=== PATIENT | male | born 1965 | race Caucasian/White ===

== ENCOUNTER 2022-07-20 12:07 | Outpatient (CLI) | payer BC, SELFPAY ==
[2022-07-20 13:07] LABS: Albumin* 4.5 g/dL (3.3-5.0)
[2022-07-20 13:08] LABS: Chloride* 103 mmol/L (96-114); Potassium* 4.8 mmol/L (3.6-5.1); Sodium* 137 mmol/L (135-149)
[2022-07-20 13:10] LABS: Alkaline Phosphatase* 51 U/L (40-150); Aspartate Amino Transferase* 30 U/L (12-35); Bilirubin Total* 0.7 mg/dL (0.1-1.5); Blood Urea Nitrogen* 20 mg/dL (7-30); Carbon Dioxide* 26 mmol/L (20-32); Cholesterol* 141 mg/dL (90-199); Creatinine* 0.8 mg/dL (0.5-1.5); Estimated Glomerular Filt Rate 103 ml/min
[2022-07-20 13:11] LABS: Alanine Aminotransferase* 32 U/L (4-50); Calcium* 9.5 mg/dL (8.4-10.6); Glucose* 100 mg/dL (60-115); Triglycerides* 86 mg/dL (40-149)
[2022-07-20 13:12] LABS: HDL Cholesterol* 43 mg/dL (>=40); LDL Cholesterol Calculated 81 mg/dL (<100)
[2022-07-20 13:37] LABS: PSA Screen* 1.19 ng/mL (0.10-4.00)
[2022-07-27 15:28] LABS: Sex Hormone Binding Globulin 43 nmol/L (19-76); Testosterone, Free LC-MS/MS 211.8 pg/mL (47.0-244.0); Testosterone, LC-MS/MS 1116 ng/dL (300-890)
== END 2022-07-20 12:08 | disposition home or self-care (01) ==
PROVIDERS: PCP Family Medicine; Visit Provider Family Medicine
DX: Z00.00 Encounter for general adult medical examination without abnormal findings (principal); R79.89 Other specified abnormal findings of blood chemistry; E78.5 Hyperlipidemia, unspecified; I10 Essential (primary) hypertension; R68.82 Decreased libido
CPT/HCPCS: 80053; 80061; 84153; 84270; 84402; 84403

== ENCOUNTER 2022-09-21 12:41 | Outpatient (CLI) | payer BC, SELFPAY | END 2022-09-21 12:42 | disposition home or self-care (01) | LOC: OP CLINIC 12:42 | PROVIDERS: PCP Family Medicine; Visit Provider Internal Medicine | DX: Z12.11 Encounter for screening for malignant neoplasm of colon (principal); K63.5 Polyp of colon; Z80.0 Family history of malignant neoplasm of digestive organs | CPT/HCPCS: 45380; 88305; J2250; J3010 ==

== ENCOUNTER 2022-11-01 08:54 | Outpatient (CLI) | payer BC, SELFPAY ==
[2022-11-03 03:38] LABS: Sex Hormone Binding Globulin 44 nmol/L (19-76); Testosterone, Adult Male 821 ng/dL (300-890); Testosterone, Free Calculation 143 pg/mL (47-244); Testosterone, Percentage Free 1.7 % (1.6-2.9)
== END 2022-11-01 08:55 | disposition home or self-care (01) ==
PROVIDERS: PCP Family Medicine; Visit Provider Family Medicine
DX: R79.89 Other specified abnormal findings of blood chemistry (principal)
CPT/HCPCS: 84270; 84402; 84403

== ENCOUNTER 2023-04-04 08:11 | Outpatient (CLI) | payer BC, SELFPAY | END 2023-04-04 08:12 | disposition home or self-care (01) | LOC: NFLDREF 04-07 07:24 | PROVIDERS: PCP Family Medicine; Referring Provider Family Medicine; Visit Provider Family Medicine | DX: R79.89 Other specified abnormal findings of blood chemistry (principal) | CPT/HCPCS: 84270; 84402; 84403 ==

== ENCOUNTER 2023-10-28 08:08 | Outpatient (CLI) | payer BC, SELFPAY | END 2023-10-28 08:09 | disposition home or self-care (01) | LOC: NFLDREF 10-30 12:05 | PROVIDERS: PCP Family Medicine; Referring Provider Family Medicine; Visit Provider Family Medicine | DX: E78.5 Hyperlipidemia, unspecified (principal); I10 Essential (primary) hypertension; N40.0 Benign prostatic hyperplasia without lower urinary tract symptoms; R79.89 Other specified abnormal findings of blood chemistry | CPT/HCPCS: 80053; 80061; 84270; 84402; 84403; G0103 ==

== ENCOUNTER 2024-02-26 07:54 | Outpatient (CLI) | payer BC, SELFPAY | END 2024-02-26 07:55 | disposition home or self-care (01) | LOC: NFLDREF 02-27 06:46 | PROVIDERS: PCP Family Medicine; Visit Provider Family Medicine | DX: R79.89 Other specified abnormal findings of blood chemistry (principal) | CPT/HCPCS: 80076; 84270; 84402; 84403 ==

== ENCOUNTER 2024-05-27 15:52 | Outpatient (CLI) | payer BC, SELFPAY | END 2024-05-27 15:53 | disposition home or self-care (01) | LOC: NFLDREF 05-28 08:45 | PROVIDERS: PCP Family Medicine; Visit Provider Family Medicine | DX: R79.89 Other specified abnormal findings of blood chemistry (principal); I10 Essential (primary) hypertension | CPT/HCPCS: 80076; 84270; 84402; 84403 ==

== ENCOUNTER 2024-11-16 08:10 | Outpatient (CLI) | payer BC, SELFPAY | END 2024-11-16 08:11 | disposition home or self-care (01) | LOC: NFLDREF 11-18 01:32 | PROVIDERS: PCP Family Medicine; Referring Provider Family Medicine; Visit Provider Family Medicine | DX: R68.82 Decreased libido (principal); R79.89 Other specified abnormal findings of blood chemistry; I10 Essential (primary) hypertension; E78.5 Hyperlipidemia, unspecified; Z13.1 Encounter for screening for diabetes mellitus; Z12.5 Encounter for screening for malignant neoplasm of prostate; Z13.6 Encounter for screening for cardiovascular disorders | CPT/HCPCS: 80053; 80061; 84270; 84402; 84403; G0103 ==

== ENCOUNTER 2025-05-19 08:04 | Outpatient (CLI) | payer BC, SELFPAY | END 2025-05-19 08:05 | disposition home or self-care (01) | LOC: NFLDREF 05-21 13:28 | PROVIDERS: PCP Family Medicine; Referring Provider Family Medicine; Visit Provider Family Medicine | DX: R79.89 Other specified abnormal findings of blood chemistry (principal) | CPT/HCPCS: 80076; 84270; 84402; 84403 ==